=== PATIENT | female | born 1955 | race Caucasian/White ===

== ENCOUNTER → 2016-03-19 | Outpatient (CLI) | payer OTHER ==
[~2016-03-19] MED LIST: /ADVA50050 INH; /IPRAINH; ACET65TA; ACET65TA OR; ADV250INH INH; ADV500INH INH; ADVAIR; ALBU17IN INH; ALEN10TA PO; ALEV220T26 PO; AMLO5TAB2 PO; AZIT250T3 PO; BREO1INH INH; BREO1INH3 INH; CLON-412 PO; COMBVENT INH; DOLO10TA PO; FLEXERIL PO; FLUC100T PO; FLUC10TA PO; FOSA70TA PO; HYDR25TAB PO; IBUP600T PO; INCR1INH INH; LEVA500T; LEVA500T PO; LEVA750T PO; METH10SO PO; METH40TA OR; METH5SOL PO; METH5TAB2; MIRALEX OR; MUCI600T34 PO; NICO14DI20 TD; NICO21DI4; NICO7DIS4 TD; OMEP20CA3 PO; OMEP40CA2 PO; PRED10PA2 PO; PRED10TA PO; PRED10TA2; ROBITUSSIN; SENN8.6T5 OR; SOMA250T OR; SPIR1CAP INH; TIOT18INH INH; TRAM50TA2 OR; VITA-130 PO; VITA500046 PO; XOPEAER INH
--- NOTE | 2016-03-19 22:22 | ECGEPIP ---
Stationary ECG Study [facility] Test Date: 2016-03-19 Pat Name: RAN TATE Department: Room: - Gender: F Oim Architect: ANNA : 1955 Requested By: Sofy Keys Order Number: [id number] Reading MD: Theodore Charles Measurements Intervals [place] Rate: 110 P: 85 ME: 115 QRS: 77 QRSD: 86 T: 74 QT: 345 QTc: 468 Interpretive Statements Sinus tachycardia Short ME interval Nonspecific ST-T wave abnormalities No significant change when compared to prior tracing of 01/17/2016 Electronically Signed On 03-19-2016 22:21:41 EST by Theodore Charles
== END ==
LOC: M EKG 14:11
PROVIDERS: ATTEND Nurse Practitioner
DX: F11.20 Opioid dependence, uncomplicated (principal)

== ENCOUNTER → 2016-03-21 | Outpatient (CLI) | payer MEDICAID | LOC: M OUTALCOH 10:26 | PROVIDERS: ATTEND Psychiatry & Neurology Psychiatry | DX: Z13.9 Encounter for screening, unspecified (principal); F11.20 Opioid dependence, uncomplicated ==

== ENCOUNTER 2016-04-01 09:42 | Outpatient (RCR) | payer MEDICAID | END 2016-04-02 | LOC: M OUTALCOH 09:42 | PROVIDERS: ATTEND Psychiatry & Neurology Psychiatry | DX: F11.20 Opioid dependence, uncomplicated (principal); F17.200 Nicotine dependence, unspecified, uncomplicated ==

== ENCOUNTER 2016-04-29 08:45 | Outpatient (RCR) | payer MEDICAID | END 2016-04-30 | LOC: M OUTALCOH 08:45 | PROVIDERS: ATTEND Psychiatry & Neurology Psychiatry | DX: F11.20 Opioid dependence, uncomplicated (principal); F17.200 Nicotine dependence, unspecified, uncomplicated ==

== ENCOUNTER → 2016-05-31 | Outpatient (RCR) | payer MEDICAID | LOC: M OUTALCOH 05-01 15:01 | PROVIDERS: ATTEND Psychiatry & Neurology Psychiatry | DX: F11.20 Opioid dependence, uncomplicated (principal); F17.200 Nicotine dependence, unspecified, uncomplicated ==

== ENCOUNTER 2016-06-28 15:00 | Outpatient (RCR) | payer MEDICAID | END 2016-06-30 | LOC: M OUTALCOH 15:00 | PROVIDERS: ATTEND Psychiatry & Neurology Psychiatry | DX: F11.20 Opioid dependence, uncomplicated (principal); F17.200 Nicotine dependence, unspecified, uncomplicated ==

== ENCOUNTER 2016-07-07 15:18 | Inpatient (IN) | payer MEDICAID, OTHER ==
[~2016-07-07] VITALS: Ht 149.9 cm; Wt 41.2 kg
[2016-07-07 16:03] LABS: ABG BASE EXCESS 2.1 (-2.0-2.0); ABG HCO3 33.6 MEQ/L (22.0-26.0); ABG PARTIAL PRESSURE O2 83.4 mmHg (75.0-100.0); ABG STANDARD HCO3 26.3 MEQ/L (22.0-26.0); ABG TOTAL CO2 36.4 MEQ/L (23.0-31.0)
[2016-07-07 16:06] LABS: ABG PARTIAL PRESSURE CO2 91.1 mmHg (35.0-45.0); ABG pH (ARTERIAL) 7.185 UNITS (7.350-7.450)
[2016-07-07 16:09] LABS: BASO # 0.1 K/mm3 (0.0-0.2); EOS % 0.1 % (0.0-3.0); LARGE UNSTAINED CELL # 0.1 K/mm3 (0.0-0.4); LARGE UNSTAINED CELL % 0.8 % (0.0-4.0); LYMPH # 0.9 K/mm3 (1.5-4.5); LYMPH % 8.9 % (24.0-44.0); MEAN CORPUSCULAR HEMOGLOBIN 28.8 pg (27.0-33.0); MEAN CORPUSCULAR HGB CONC 30.2 g/dl (32.0-36.5); MEAN CORPUSCULAR VOLUME 95.4 fl (80.0-96.0); MONO # 0.3 K/mm3 (0.0-0.8); MONO % 3.8 % (0.0-5.0); NEUTROPHILS # 7.6 K/mm3 (1.8-7.7); NEUTROPHILS % 85.3 % (36.0-66.0); PLATELET COUNT, AUTOMATED 250 k/mm3 (150-450); RED CELL DISTRIBUTION WIDTH 13.1 % (11.5-14.5)
[2016-07-07] MEDS ORDERED: methylPREDNISolone INJ 125 MG/2 ML VIAL (J2930) IV ONE (16:15)
[2016-07-07] MEDS ORDERED: NS 1,000 ML IV SCH ×2 (16:15→18:00)
[2016-07-07] MEDS ORDERED: IPRATROPIUM 0.5MG/ALBUTEROL 2.5MG INH SOL UD 3ML (DUONEB)(J7620) NEB ONE (16:15)
[2016-07-07 16:23] LABS: ALBUMIN 3.6 GM/DL (3.2-5.2); ALBUMIN/GLOBULIN RATIO 1.13 (1.00-1.93); ALKALINE PHOSPHATASE 66 U/L (45-117); ALT/SGPT 19 U/L (12-78); ANION GAP 5 MEQ/L (8-16); AST/SGOT 27 U/L (15-37); BILIRUBIN,DIRECT < 0.1 MG/DL (0.0-0.2); BILIRUBIN,TOTAL 0.2 MG/DL (0.2-1.0); BLOOD UREA NITROGEN 16 MG/DL (7-18); CALCIUM LEVEL 7.7 MG/DL (8.8-10.2); CARBON DIOXIDE LEVEL 33 MEQ/L (21-32); CHLORIDE LEVEL 98 MEQ/L (98-107); CREATININE FOR GFR 0.58 MG/DL (0.55-1.02); GLOMERULAR FILTRATION RATE > 60.0 (>45); GLUCOSE, FASTING 125 MG/DL (80-110); SODIUM LEVEL 136 MEQ/L (136-145); TOTAL PROTEIN 6.8 GM/DL (6.4-8.2)
[2016-07-07 16:25] LABS: INR 1.02
[2016-07-07] MEDS ORDERED: LevoFLOXacin IV 750 MG in APPROPRIATE DILUENT 1 EA IV ONE (16:45)
[2016-07-07 17:05] LABS: T UPTAKE 34 % (30-39); THYROXINE (T4) 9.8 UG/DL (4.5-12.0)
[2016-07-07] MEDS ORDERED: ALBUTEROL SULFATE 2.5 MG/0.5 ML INH NEB SOLN INH PRN (17:30)
[2016-07-07 17:36] LABS: ABG HCO3 34.3 MEQ/L (22.0-26.0); ABG PARTIAL PRESSURE O2 89.9 mmHg (75.0-100.0); ABG STANDARD HCO3 28.9 MEQ/L (22.0-26.0); ABG TOTAL CO2 36.6 MEQ/L (23.0-31.0); ABG pH (ARTERIAL) 7.281 UNITS (7.350-7.450)
[2016-07-07 17:38] LABS: ABG PARTIAL PRESSURE CO2 74.6 mmHg (35.0-45.0)
--- NOTE | 2016-07-07 17:38 | HPEPDOC ---
Medical History and Physical Date of Admission 07/07/16 History and Physical PRIMARY CARE PROVIDER: Dr. [facility] resident clinic. ATTENDING: AURE KELLEY MD CHIEF COMPLAINT: SOB HISTORY OF PRESENT ILLNESS: Is a 61-year-old female past history of COPD on 2 L home O2, opiate dependence previously on a methadone program, GERD, OA who presents increasing SOB and hypoxia. states patient has been complaining of shortness of breath and generalized malaise over the past week. Patient states over the past few days she's developed thicker mucus as well as increasing shortness of breath. Today, the patient's pulse ox was noted to be 62 on 2 L nasal cannula. Patient denies any fevers however had a fever 100.8 in the ED. Patient was very lethargic in the ED and was placed on BiPAP. ABG with respiratory acidosis. At present patient is alert oriented 3. Was able to give a full history. Patient denies any chest pain/shortness of breath/palpitations. Patient denies nausea/vomiting/abdominal pain. Patient states she's in a methadone program in [place] and closer daily for her methadone. States she takes 80 mg daily. PAST MEDICAL HISTORY: As per HPI PAST SURGICAL HISTORY: Hysterectomy CURRENT MEDICATIONS: See below ALLERGIES: See below SOCIAL HISTORY: Smokes a half a pack a day for over 30 years, drinks alcohol occasionally on the weekends, uses methadone however no cocaine, heroin, marijuana. FAMILY HISTORY: Father and sister of lung cancer REVIEW OF SYSTEMS: HEENT: Denies sore throat/headache CARDIOVASCULAR: Denies chest pain/palpitations RESPIRATORY: + shortness of breath/cough. GASTROINTESTINAL: denies nausea/vomiting GENITOURINARY: Denies dysuria/urinary urgency. MUSCULOSKELETAL: Denies myalgias/arthralgias NEUROLOGICAL: Denies any focal weakness Rest of ROS negative. PHYSICAL EXAMINATION: VITAL SIGNS: See Below. General: No acute distress, laying comfortably in bed. HEENT: Moist mucous membranes. Hoarse. Patent airway. Neck: No JVD or lymphadenopathy Cardiac: Tachycardic, No murmurs Pulm: Expiratory wheezing b/l, diminished breath sounds at the bases. No rhonchi. On Bipap Abd: NT/ND + BS Ext: No edema or cyanosis. Distal pulses intact. Neuro: Strength 5/5 BUE and BLE. CN 2-12 intact. LABORATORY DATA: See below. IMAGING: CXR 07/07/16 with possible basilar PNA. ASSESSMENT/PLAN: 1. Acute hypercapnic respiratory failure requiring BIPAP likely 2/2 PNA. . Patient was noted to be lethargic in the ED; mentation improve don BIPAP. Chest x-ray (see above). ABG with 7.185/91/83/34. Will repeat in 2h. Dual nebs and solumedrol. On 2 L of home O2. Also on methadone - ? if contributing. 2. Decreased PO intake - 2/2 #1, started on IVF 3. Opiate addiction - On methadone program. Will check UDS. 4. GERD- continue PPI DVT prophylaxis- enoxaparin Pt will be followed by Dr. Zaragoza starting 07/08/16 at 7am. Vital Signs Vital Signs Date Time Temp Pulse Resp B/P (MAP) Pulse Ox O2 Delivery O2 Flow Rate FiO2 07/07/16 16:35 45 07/07/16 16:34 Venturi Mask 10.0 07/07/16 16:22 07/07/16 15:19 82 68 Laboratory Data Labs 24H Laboratory Tests 2 07/07/16 15:47: White Blood Count 9.0, Red Blood Count 4.88, Hemoglobin 14.1, Hematocrit 46.5, Mean Corpuscular Volume 95.4, Mean Corpuscular Hemoglobin 28.8, Mean Corpuscular Hemoglobin Concent 30.2L, Red Cell Distribution Width 13.1, Platelet Count 250, Neutrophils (%) (Auto) 85.3H, Lymphocytes (%) (Auto) 8.9L, Monocytes (%) (Auto) 3.8, Eosinophils (%) (Auto) 0.1, Basophils (%) (Auto) 1.0, Neutrophils # (Auto) 7.6, Lymphocytes # (Auto) 0.9L, Monocytes # (Auto) 0.3, Eosinophils # (Auto) 0.0, Basophils # (Auto) 0.1, Large Unclassified Cells % 0.8 , Large Unclassified Cells # 0.1, Anion Gap 5L, Glomerular Filtration Rate > 60.0, Lactic Acid Level 0.9, Calcium Level 7.7L, Aspartate Amino Transf (AST/ SGOT) 27, Alanine Aminotransferase (ALT/SGPT) 19, Alkaline Phosphatase 66, Total Bilirubin 0.2, Direct Bilirubin < 0.1, Total Creatine Kinase 86, Creatine Kinase MB 1.1, Creatine Kinase MB Relative Index 1.27, Troponin I < 0.02, C- Reactive Protein, Quantitative 8.65H, B-Type Natriuretic Peptide 62.2, Total Protein 6.8, Albumin 3.6, Albumin/Globulin Ratio 1.13, Thyroid Stimulating Hormone (TSH) 0.180L, Free Thyroxine Index 3.3, Thyroxine (T4) 9.8, Triiodothyronine (T3) Uptake 34 07/07/16 15:54: Blood Gas Bicarbonate Standard 26.3H, Arterial Blood pH 7.185*L, Arterial Blood Partial Pressure CO2 91.1*H, Arterial Blood Partial Pressure O2 83.4, Arterial Blood Total CO2 36.4H, Arterial Blood HCO3 33.6H, Arterial Blood Base Excess 2.1H, Arterial Blood Oxygen Saturation 94.5L 07/07/16 15:57: Prothrombin Time 13.5, Prothromb Time International Ratio 1.02 CBC/BMP Laboratory Tests 07/07/16 15:47 Red Blood Count 4.88, Mean Corpuscular Volume 95.4, Mean Corpuscular Hemoglobin 28.8, Mean Corpuscular Hemoglobin Concent 30.2 L, Red Cell Distribution Width 13.1, Neutrophils (%) (Auto) 85.3 H, Lymphocytes (%) (Auto) 8.9 L, Monocytes (% ) (Auto) 3.8, Eosinophils (%) (Auto) 0.1, Basophils (%) (Auto) 1.0, Neutrophils # (Auto) 7.6, Lymphocytes # (Auto) 0.9 L, Monocytes # (Auto) 0.3, Eosinophils # (Auto) 0.0, Basophils # (Auto) 0.1 Microbiology Microbiology 07/07/16 Blood Culture, Received Pending 07/07/16 Blood Culture, Received Pending 07/07/16 Respiratory Virus Panel (PCR) ([facility]), Received Pending Home Medications Scheduled (Incruse Ellipta) 62.5 Mcg/Inh Inh, 1 PUFF INH DAILY Ascorbic Acid (Vitamin C) 500 Mg Tab, 500 MG PO DAILY Clonidine Hydrochloride (Clonidine HCl) 0.1 Mg Tab, 0.1 MG PO Q6H hold for systolic blood pressure<150 Fluticasone/Vilanterol (Breo Ellipta 200-25 Mcg/INH) 1 Inh Inh, 1 INH INH DAILY Methadone HCl (Dolophine) 10 Mg Tab, 10 MG PO BID Nicotine (Nicoderm Cq) 7 Mg/24 Hr Dis, 7 MG TD DAILY Scheduled PRN Albuterol Sulfate (Ventolin Hfa) 200 Puff/8 Gm Aers, 2 PUFF INH Q4H PRN for SOB/ WHEEZING Hydrochlorothiazide (Hydrochlorothiazide) 25 Mg Tab, 25 MG PO DAILY PRN for fluid retention Allergies Coded Allergies: Penicillins (Verified Allergy, Severe, THROAT CLOSES, 07/07/16) Penicillins Cross Reactors (Verified Allergy, Severe, THROAT CLOSES, ) AURE KELLEY MD July 07, 2016 17:38
[2016-07-07] MEDS ORDERED: FLUC100T PO (17:46)
[2016-07-07] MEDS ORDERED: PRED10TA PO (17:46)
[2016-07-07] MEDS ORDERED: METH40TA PO (17:48)
[2016-07-07] MEDS ORDERED: IPRASOL4 INH (17:48)
--- NOTE | 2016-07-07 17:54 | REP ---
CHEST, TWO VIEWS: REASON: Fever and cough. COMPARISON: 01/17/2016 The lung albarado are markedly hyper-expanded. The heart is not enlarged. There are chronic basilar changes stable from the prior exam. On the lateral view only there is a suggested opacity in the posterior sulcus, possible representing lower lobe pneumonia and possibly left retrocardiac in origin. There is chronic CP angle blunting. The heart is not enlarged. There are multiple vertebral body compression fractures of grade 1/2, particularly T8 and T9. IMPRESSION: Marked chronic changes with possible basilar pneumonia. Signed by Fly Weller DO 07/08/2016 09:56 A
[2016-07-07] MEDS ORDERED: CALCIUM GLUCONATE 1,000 MG in D5W MINI-BAG PLUS 100 ML IV ONE (19:00)
[2016-07-07] MEDS: IPRATROPIUM 0.5MG/ALBUTEROL 2.5MG INH SOL UD 3ML (DUONEB)(J7620) NEB SCH (19:37)
[2016-07-07 20:42] VITALS: BP 124/70
[2016-07-07 21:26] LABS: ABG BASE EXCESS 4.6 (-2.0-2.0); ABG HCO3 33.4 MEQ/L (22.0-26.0); ABG PARTIAL PRESSURE O2 75.8 mmHg (75.0-100.0); ABG STANDARD HCO3 28.5 MEQ/L (22.0-26.0); ABG TOTAL CO2 35.6 MEQ/L (23.0-31.0)
[2016-07-07 21:29] LABS: ABG PARTIAL PRESSURE CO2 71.1 mmHg (35.0-45.0)
[2016-07-07 22:00] VITALS: BP 103/63
[2016-07-07] MEDS: methylPREDNISolone INJ 125 MG/2 ML VIAL (J2930) IV SCH (23:40)
[2016-07-08] VITALS (10 sets, daily range): BP systolic 95–157; BP diastolic 61–91; O2SAT 91
[2016-07-08 00:46] LABS: ABG BASE EXCESS 2.1 (-2.0-2.0); ABG HCO3 29.4 MEQ/L (22.0-26.0); ABG PARTIAL PRESSURE CO2 58.2 mmHg (35.0-45.0); ABG PARTIAL PRESSURE O2 64.6 mmHg (75.0-100.0); ABG STANDARD HCO3 26.2 MEQ/L (22.0-26.0); ABG TOTAL CO2 31.2 MEQ/L (23.0-31.0); ABG pH (ARTERIAL) 7.322 UNITS (7.350-7.450)
[2016-07-08] MEDS: IPRATROPIUM 0.5MG/ALBUTEROL 2.5MG INH SOL UD 3ML (DUONEB)(J7620) NEB SCH ×7 (00:52→23:18)
[2016-07-08 04:43] LABS: MEAN CORPUSCULAR HEMOGLOBIN 29.9 pg (27.0-33.0); MEAN CORPUSCULAR HGB CONC 30.7 g/dl (32.0-36.5); MEAN CORPUSCULAR VOLUME 97.3 fl (80.0-96.0); RED CELL DISTRIBUTION WIDTH 13.1 % (11.5-14.5); WHITE BLOOD COUNT 6.8 K/mm3 (4.0-10.0)
[2016-07-08 04:55] LABS: ANION GAP 4 MEQ/L (8-16); BLOOD UREA NITROGEN 19 MG/DL (7-18); CALCIUM LEVEL 7.9 MG/DL (8.8-10.2); CARBON DIOXIDE LEVEL 34 MEQ/L (21-32); CHLORIDE LEVEL 100 MEQ/L (98-107); CREATININE FOR GFR 0.45 MG/DL (0.55-1.02); GLOMERULAR FILTRATION RATE > 60.0 (>45); GLUCOSE, FASTING 105 MG/DL (80-110); MAGNESIUM LEVEL 1.7 MG/DL (1.8-2.4); POTASSIUM SERUM 4.1 MEQ/L (3.5-5.1); SODIUM LEVEL 138 MEQ/L (136-145)
[2016-07-08] MEDS: methylPREDNISolone INJ 125 MG/2 ML VIAL (J2930) IV SCH ×4 (05:33→23:37)
--- NOTE | 2016-07-08 06:37 | ECGEPIP ---
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
[2016-07-08] MEDS ORDERED: CALCIUM GLUCONATE 1,000 MG in D5W MINI-BAG PLUS 100 ML IV ONE (07:30)
--- NOTE | 2016-07-08 08:48 | IPNPDOC ---
Date Seen The patient was seen on 07/08/16. Progress Note SUBJECTIVE: Ms. Callahan is a 61-year-old female evaluated bedside this morning. She sitting upright. She denies shortness of breath and states that she is getting better. She would like to get up to use the facilities. Likely the patient will be transferred to medical surgical unit as clinically she appears to be improving. Magnesium and calcium were supplemented this morning secondary to mild deficiencies. Patient states that she was on Diflucan for oral thrush and that has been restarted. ABG appears improved. Patient remains afebrile. Patient states that she has a CPAP machine at home, but does not wear it consistently. Recommended that machine be brought in and used while hospitalized. Patient states that she is on methadone and has been for the last 7 years secondary to opioid abuse. Most recent relapse was in December for which she received rehabilitation in January. She receies methadone from [place]. Travels to [place] every day. Continue with methadone while hospitalized. Patient states that she smokes intermittently and has on and off for years. States that she will not resume tobacco use upon discharge. OBJECTIVE PHYSICAL EXAMINATION: VITAL SIGNS: Please see below. GENERAL: Petite female resting comfortably in hospital bed upon evaluation, no apparent distress HEENT: Atraumatic, normocephalic, PERRL, EOMI, oral candidiasis, wears spectacles, nasal cannula in place CARDIOVASCULAR: Regular rate and rhythm, normal S1 and S2, no murmur, rub, click appreciated RESPIRATORY: Clear to auscultation bilaterally, adequate inspiratory and expiratory airway excursion, no wheeze, rhonchi, crackles ABDOMINAL: Flat, soft, nontender, bowel sounds appreciated EXTREMITIES: Moving all 4 extremities appropriately, peripheral pulses appreciated in upper and lower extremities bilaterally, equal, symmetrical, +2/4 NEUROLOGICAL: Cranial nerves II through XII grossly intact PSYCHOLOGICAL: Mood and affect appear appropriate LABORATORY DATA: Please see below. MICROBIOLOGY: Please see below. IMAGING: Chest x-ray DVT prophylaxis ordered?: Lovenox 40 mg subcutaneous daily ASSESSMENT AND PLAN: Ms. Callahan is a 61-year-old female who presents with acute on chronic hypoxic and hypercarbic respiratory failure secondary to COPD exacerbation. PROBLEMS: 1. Acute on chronic hypoxic hypercarbic respiratory failure: Likely secondary to COPD exacerbation secondary to sputum culture positive for rhinovirus. Patient remains afebrile with no white count. ABG this morning reports pH 7.322 , PCO2 58.2, PO2 64.6, HCO3 31.2. ABG has improved. Antibiotic has been discontinued. Patient remains on DuoNeb, albuterol, and Solu-Medrol. Bedside oxygenation 92% on nasal cannula. Awaiting report from chest x-ray this morning. Patient may use home CPAP machine. Will confer with respiratory therapy to adjust patient's settings. 2. Oral candidiasis: Patient was diagnosed with oral candidiasis for hospitalization. Have restarted patient's fluconazole 100 mg daily for 4 remaining days. 3. Hypomagnesemia: Magnesium level this morning was 1.7. Have ordered magnesium supplementation. 4. Hypercalcemia: Patient's calcium levels 107.9. Have provided supplementation. 5. History of opioid abuse: Patient is on methadone daily. States that she is prior history of opioid abuse and has been on methadone for 7 years. Receives methadone from clinic in [place]. States she travels to [place] daily. Most recent relapse was in December. Received rehabilitation January. No relapses since then. We'll need to consider methadone dose before initiating. DISPOSITION: Clinically patient appears to be improving. Afebrile. No WBC. Restarted fluconazole for patient's oral candidiasis. Supplementation for low magnesium and calcium. ABG appears improved. Patient can transferred to medical surgical unit. VS, I&O, 24H, Fishbone Vital Signs/I&O Vital Signs Date Time Temp Pulse Resp B/P (MAP) Pulse Ox O2 Delivery O2 Flow Rate FiO2 07/08/16 06:00 78 16 123/72 (89) 90 NIPPV (BIPAP/CPAP) 28 07/08/16 04:00 97.8 07/07/16 16:34 10.0 I&O- Last 24 Hours up to 6 AM 07/08/16 05:59 Intake Total 350 ml Output Total 300 ml Balance 50 ml Laboratory Data 24H LABS Laboratory Tests 2 07/07/16 15:47: White Blood Count 9.0, Red Blood Count 4.88, Hemoglobin 14.1, Hematocrit 46.5, Mean Corpuscular Volume 95.4, Mean Corpuscular Hemoglobin 28.8, Mean Corpuscular Hemoglobin Concent 30.2L, Red Cell Distribution Width 13.1, Platelet Count 250, Neutrophils (%) (Auto) 85.3H, Lymphocytes (%) (Auto) 8.9L, Monocytes (%) (Auto) 3.8, Eosinophils (%) (Auto) 0.1, Basophils (%) (Auto) 1.0, Neutrophils # (Auto) 7.6, Lymphocytes # (Auto) 0.9L, Monocytes # (Auto) 0.3, Eosinophils # (Auto) 0.0, Basophils # (Auto) 0.1, Large Unclassified Cells % 0.8 , Large Unclassified Cells # 0.1, Anion Gap 5L, Glomerular Filtration Rate > 60.0, Lactic Acid Level 0.9, Calcium Level 7.7L, Aspartate Amino Transf (AST/ SGOT) 27, Alanine Aminotransferase (ALT/SGPT) 19, Alkaline Phosphatase 66, Total Bilirubin 0.2, Direct Bilirubin < 0.1, Total Creatine Kinase 86, Creatine Kinase MB 1.1, Creatine Kinase MB Relative Index 1.27, Troponin I < 0.02, C- Reactive Protein, Quantitative 8.65H, B-Type Natriuretic Peptide 62.2, Total Protein 6.8, Albumin 3.6, Albumin/Globulin Ratio 1.13, Thyroid Stimulating Hormone (TSH) 0.180L, Free Thyroxine Index 3.3, Thyroxine (T4) 9.8, Triiodothyronine (T3) Uptake 34 07/07/16 15:54: Blood Gas Bicarbonate Standard 26.3H, Arterial Blood pH 7.185*L, Arterial Blood Partial Pressure CO2 91.1*H, Arterial Blood Partial Pressure O2 83.4, Arterial Blood Total CO2 36.4H, Arterial Blood HCO3 33.6H, Arterial Blood Base Excess 2.1H, Arterial Blood Oxygen Saturation 94.5L 07/07/16 15:57: Prothrombin Time 13.5, Prothromb Time International Ratio 1.02 07/07/16 17:20: Blood Gas Bicarbonate Standard 28.9H, Arterial Blood pH 7.281L, Arterial Blood Partial Pressure CO2 74.6*H, Arterial Blood Partial Pressure O2 89.9, Arterial Blood Total CO2 36.6H, Arterial Blood HCO3 34.3H, Arterial Blood Base Excess 5.0H, Arterial Blood Oxygen Saturation 96.9 07/07/16 21:16: Blood Gas Bicarbonate Standard 28.5H, Arterial Blood pH 7.290L, Arterial Blood Partial Pressure CO2 71.1*H, Arterial Blood Partial Pressure O2 75.8, Arterial Blood Total CO2 35.6H, Arterial Blood HCO3 33.4H, Arterial Blood Base Excess 4.6H, Arterial Blood Oxygen Saturation 95.1, Arterial Blood Gas Puncture Site RT RADIAL 07/07/16 22:14: Total Creatine Kinase 55, Creatine Kinase MB 1.2, Creatine Kinase MB Relative Index 2.18, Troponin I < 0.02 07/08/16 00:37: Blood Gas Bicarbonate Standard 26.2H, Arterial Blood pH 7.322L, Arterial Blood Partial Pressure CO2 58.2H, Arterial Blood Partial Pressure O2 64.6L, Arterial Blood Total CO2 31.2H, Arterial Blood HCO3 29.4H, Arterial Blood Base Excess 2.1H, Arterial Blood Oxygen Saturation 92.4L, Arterial Blood Gas Puncture Site RT RADIAL 07/08/16 04:12: Anion Gap 4L, Glomerular Filtration Rate > 60.0, Blood Urea Nitrogen 19H, Creatinine 0.45L, Sodium Level 138, Potassium Level 4.1, Chloride Level 100, Carbon Dioxide Level 34H, Calcium Level 7.9L, Magnesium Level 1.7L, C-Reactive Protein, Quantitative 10.70H CBC/BMP Laboratory Tests 07/07/16 15:47 Red Blood Count 4.88, Mean Corpuscular Volume 95.4, Mean Corpuscular Hemoglobin 28.8, Mean Corpuscular Hemoglobin Concent 30.2 L, Red Cell Distribution Width 13.1, Neutrophils (%) (Auto) 85.3 H, Lymphocytes (%) (Auto) 8.9 L, Monocytes (% ) (Auto) 3.8, Eosinophils (%) (Auto) 0.1, Basophils (%) (Auto) 1.0, Neutrophils # (Auto) 7.6, Lymphocytes # (Auto) 0.9 L, Monocytes # (Auto) 0.3, Eosinophils # (Auto) 0.0, Basophils # (Auto) 0.1 07/08/16 04:12 Red Blood Count 4.24, Mean Corpuscular Volume 97.3 H, Mean Corpuscular Hemoglobin 29.9, Mean Corpuscular Hemoglobin Concent 30.7 L, Red Cell Distribution Width 13.1, Calcium Level 7.9 L Microbiology Microbiology 07/07/16 Blood Culture, Received Pending 07/07/16 Blood Culture, Received Pending 5/7/17 Respiratory Virus Panel (PCR) ([facility]) - Final, Complete Human Rhinovirus/Enterovirus ROSENDO MCCALL-I July 08, 2016 08:48
[2016-07-08] MEDS ORDERED: FLUCONAZOLE 100 MG TAB PO SCH (09:00)
[2016-07-08] MEDS: NICOTINE 14 MG/24 HR TRANSDERMAL TD SCH (09:00)
[2016-07-08] MEDS ORDERED: LevoFLOXacin IV 500 MG in APPROPRIATE DILUENT 1 EA IV SCH (09:00)
[2016-07-08] MEDS: ENOXAPARIN 40 MG/0.4 ML SYRINGE (J1650) SC SCH (09:05)
[2016-07-08] MEDS: MAG SULF 1GM/100ML (MAG RUN) 1 GM in APPROPRIATE DILUENT 1 EA IV SCH ×2 (09:06→10:12)
--- NOTE | 2016-07-08 09:23 | REP ---
PORTABLE CHEST: AP portable view of the chest is performed and compared with prior study of 07/07/2016. There is mild increase in bibasilar streaky atelectasis/infiltrate. Cardiomediastinal silhouette is unchanged. There is calcification of the thoracic aorta. IMPRESSION: Slight increase in streaky bibasilar atelectasis/infiltrate. Signed by Jamari Pabon MD 07/09/2016 04:00 P
[2016-07-08] MEDS: METHADONE 10 MG TAB (S0109) PO SCH (11:21)
[2016-07-08] MEDS: NYSTATIN 500,000 U/5 ML SUSP UDC SS SCH ×3 (11:34→23:37)
[2016-07-08] MEDS ORDERED: ACETAMINOPHEN TAB 650MG DOSE (2X325MG) PO ONE (21:00)
[2016-07-09] MEDS: IPRATROPIUM 0.5MG/ALBUTEROL 2.5MG INH SOL UD 3ML (DUONEB)(J7620) NEB SCH ×5 (04:00→20:24)
[2016-07-09 06:00] VITALS: BP 133/87
[2016-07-09] MEDS ORDERED: ACETAMINOPHEN TAB 650MG DOSE (2X325MG) PO ONE (06:00)
[2016-07-09] MEDS: methylPREDNISolone INJ 125 MG/2 ML VIAL (J2930) IV SCH ×2 (06:07→10:17)
[2016-07-09] MEDS: NYSTATIN 500,000 U/5 ML SUSP UDC SS SCH ×3 (06:07→18:42)
[2016-07-09 06:53] LABS: MEAN CORPUSCULAR HEMOGLOBIN 29.6 pg (27.0-33.0); MEAN CORPUSCULAR HGB CONC 30.9 g/dl (32.0-36.5); MEAN CORPUSCULAR VOLUME 95.9 fl (80.0-96.0); WHITE BLOOD COUNT 15.1 K/mm3 (4.0-10.0)
[2016-07-09 06:59] LABS: ANION GAP 4 MEQ/L (8-16); BLOOD UREA NITROGEN 12 MG/DL (7-18); CALCIUM LEVEL 7.9 MG/DL (8.8-10.2); CARBON DIOXIDE LEVEL 36 MEQ/L (21-32); CHLORIDE LEVEL 97 MEQ/L (98-107); CREATININE FOR GFR 0.43 MG/DL (0.55-1.02); GLOMERULAR FILTRATION RATE > 60.0 (>45); GLUCOSE, FASTING 127 MG/DL (80-110); MAGNESIUM LEVEL 2.1 MG/DL (1.8-2.4); POTASSIUM SERUM 4.3 MEQ/L (3.5-5.1); SODIUM LEVEL 137 MEQ/L (136-145)
[2016-07-09] MEDS: ENOXAPARIN 40 MG/0.4 ML SYRINGE (J1650) SC SCH (09:08)
[2016-07-09] MEDS: NICOTINE 14 MG/24 HR TRANSDERMAL TD SCH (09:08)
[2016-07-09] MEDS: METHADONE 10 MG TAB (S0109) PO SCH (09:09)
[2016-07-09] MEDS ORDERED: ONDANSETRON 4MG/2ML VIAL (J2405) IV PRN (10:45)
[2016-07-09] MEDS: OMEPRAZOLE 20 MG CAP PO SCH ×2 (11:00→19:46)
[2016-07-09 14:00] VITALS: BP 165/80
--- NOTE | 2016-07-09 15:01 | IPNPDOC ---
Date Seen The patient was seen on 07/09/16. Progress Note SUBJECTIVE: Ms. Callahan this 61-year-old female evaluated bedside this morning. She is receiving a breathing treatment during evaluation. Reports her breathing has improved. OBJECTIVE PHYSICAL EXAMINATION: VITAL SIGNS: Please see below. GENERAL: Petite female evaluated bedside this morning, well-nourished , well-developed, in no apparent distress HEENT: Atraumatic, normocephalic, PERRL, EOMI, oral mucosa appears pink and moist, nebulizer in place during evaluation CARDIOVASCULAR: Regular rate and rhythm, normal S1 and S2, no murmur, rub, click appreciated RESPIRATORY: Clear to auscultation bilaterally, adequate inspiratory and expiratory airway excursion, no appreciable wheeze, rhonchi, crackles ABDOMINAL: Soft, flat, nontender, nondistended, bowel sounds appreciated EXTREMITIES: Without edema, moving all 4 extremities appropriately, upper and lower extremity pulses appreciated bilaterally, equal, symmetrical, +2/4 NEUROLOGICAL: Cranial nerves II through XII appear grossly intact PSYCHOLOGICAL: Mood and affect appear appropriate LABORATORY DATA: Please see below. MICROBIOLOGY: Please see below. DVT prophylaxis ordered?: Lovenox 40 mg subcutaneous daily. ASSESSMENT AND PLAN: Ms. Callahan is a 61-year-old female who presents with acute on chronic hypoxic and hypercarbic respiratory failure secondary to COPD exacerbation. PROBLEMS: 1. Acute on chronic hypoxic hypercarbic respiratory failure: Likely secondary to COPD exacerbation . Remains afebrile. Solu-Medrol adjusted to 40 mg every 8 hours. Continue with DuoNeb and albuterol. 2. Leukocytosis: Likely secondary to steroid. Remains afebrile. Adjusted steroid to 40 mg every 8 hours. 3. Hypercalcemia: Corrected calcium is 8.2 to. Likely secondary to pH disturbance secondary to COPD. Continue to monitor. 4. Oral candidiasis: Fluconazole interacts with methadone. Change patient to nystatin swish and swallow. 5. Hypomagnesemia: Resolved 6. History of opioid abuse: Continue with methadone. 7. Gastric esophageal reflux disease: Initiate omeprazole 40 mg twice a day. 8. Nausea: Patient complaining subjective nausea. Started Zofran. DISPOSITION: Currently admitted to medical surgical unit. Continue supplemental treatments. Monitor for clinical improvement. Possible discharge in the next 48- 72 hours. VS, I&O, 24H, Fishbone Vital Signs/I&O Vital Signs Date Time Temp Pulse Resp B/P (MAP) Pulse Ox O2 Delivery O2 Flow Rate FiO2 07/09/16 09:15 Nasal Cannula 2.0 07/09/16 09:09 18 07/09/16 06:00 97.8 87 133/87 (102) 95 07/08/16 06:00 28 I&O- Last 24 Hours up to 6 AM 07/09/16 06:00 Intake Total 1820 ml Output Total 1225 ml Balance 595 ml Laboratory Data 24H LABS Laboratory Tests 2 07/09/16 06:27: Anion Gap 4L, Glomerular Filtration Rate > 60.0, Blood Urea Nitrogen 12, Creatinine 0.43L, Sodium Level 137, Potassium Level 4.3, Chloride Level 97L, Carbon Dioxide Level 36H, Calcium Level 7.9L, Magnesium Level 2.1, C-Reactive Protein, Quantitative 4.33H CBC/BMP Laboratory Tests 07/09/16 06:27 Red Blood Count 4.14, Mean Corpuscular Volume 95.9, Mean Corpuscular Hemoglobin 29.6, Mean Corpuscular Hemoglobin Concent 30.9 L, Red Cell Distribution Width 13.0, Calcium Level 7.9 L Microbiology Microbiology 07/07/16 Blood Culture - Preliminary, Resulted No growth after 24 hours . All specim... 07/07/16 Blood Culture - Preliminary, Resulted No growth after 24 hours . All specim... 07/07/16 Respiratory Virus Panel (PCR) ([facility]) - Final, Complete Human Rhinovirus/Enterovirus ROSENDO MCCALL July 09, 2016 15:01
[2016-07-09] MEDS: methylPREDNISolone INJ 40 MG/1 ML VIAL (J2920) IV SCH (18:43)
[2016-07-09] MEDS: guaiFENesin ER 600 MG TAB PO SCH (19:46)
[2016-07-09 22:00] VITALS: BP 152/85
[2016-07-09] MEDS: ACETAMINOPHEN TAB 650MG DOSE (2X325MG) PO PRN (22:16)
[2016-07-10] MEDS: IPRATROPIUM 0.5MG/ALBUTEROL 2.5MG INH SOL UD 3ML (DUONEB)(J7620) NEB SCH ×7 (01:05→23:45)
[2016-07-10] MEDS: NYSTATIN 500,000 U/5 ML SUSP UDC SS SCH ×4 (01:22→17:19)
[2016-07-10] MEDS: methylPREDNISolone INJ 40 MG/1 ML VIAL (J2920) IV SCH ×2 (01:22→09:05)
[2016-07-10 06:00] VITALS: BP 148/82
[2016-07-10 06:48] LABS: MEAN CORPUSCULAR HEMOGLOBIN 29.9 pg (27.0-33.0); MEAN CORPUSCULAR HGB CONC 31.7 g/dl (32.0-36.5); MEAN CORPUSCULAR VOLUME 94.3 fl (80.0-96.0)
[2016-07-10 07:03] LABS: ANION GAP 3 MEQ/L (8-16); BLOOD UREA NITROGEN 10 MG/DL (7-18); CALCIUM LEVEL 8.3 MG/DL (8.8-10.2); CARBON DIOXIDE LEVEL 38 MEQ/L (21-32); CHLORIDE LEVEL 96 MEQ/L (98-107); CREATININE FOR GFR 0.45 MG/DL (0.55-1.02); GLOMERULAR FILTRATION RATE > 60.0 (>45); GLUCOSE, FASTING 115 MG/DL (80-110); MAGNESIUM LEVEL 2.1 MG/DL (1.8-2.4); POTASSIUM SERUM 4.3 MEQ/L (3.5-5.1); SODIUM LEVEL 137 MEQ/L (136-145)
[2016-07-10] MEDS: hydroCHLOROthiazide 25 MG TAB PO SCH (08:10)
[2016-07-10] MEDS: guaiFENesin ER 600 MG TAB PO SCH ×2 (08:10→21:30)
[2016-07-10] MEDS: METHADONE 10 MG TAB (S0109) PO SCH (08:11)
[2016-07-10] MEDS: OMEPRAZOLE 20 MG CAP PO SCH ×2 (08:11→21:30)
[2016-07-10] MEDS: NICOTINE 14 MG/24 HR TRANSDERMAL TD SCH (08:12)
[2016-07-10] MEDS: ENOXAPARIN 40 MG/0.4 ML SYRINGE (J1650) SC SCH (08:12)
[2016-07-10] MEDS: ACETAMINOPHEN TAB 650MG DOSE (2X325MG) PO PRN ×3 (09:06→21:30)
--- NOTE | 2016-07-10 10:12 | IPNPDOC ---
Date Seen The patient was seen on 07/10/16. Progress Note SUBJECTIVE: Ms. Callahan is a 61-year-old female evaluated bedside this morning. She sitting on the edge of the bed with her legs dangling over the edge eating breakfast upon evaluation. She reports that her breathing has definitely improved and that she is feeling better overall. She states that she is going to ambulate around the [place] today. Patient has brought in her home CPAP which she has not worn consistently over the last 2 years. Patient would like to have CPAP settings evaluated. I verbally discussed with respiratory therapy and they are aware. OBJECTIVE PHYSICAL EXAMINATION: VITAL SIGNS: Please see below. GENERAL: Petite female sitting comfortably in the edge of the bed upon evaluation this morning, nasal cannula in place, no apparent distress HEENT: Atraumatic, normocephalic, PERRL, EOMI, oral mucosa appears pink and moist, nasal septum is midline, nasal cannula in place, nares patent CARDIOVASCULAR: Regular rate and rhythm, normal S1 and S2, no murmur, rub, click appreciated RESPIRATORY: Bilateral wheezes noted in the upper lung lobes, rhonchi appreciated in the lower lobes bilaterally ABDOMINAL: Flat, soft, nontender, nondistended, bowel sounds appreciated EXTREMITIES: Moving all 4 extremities appropriately, no edema, upper and lower extremity pulses appreciated bilaterally, equal, symmetrical, +2/4 NEUROLOGICAL: Cranial nerves II through XII are grossly intact PSYCHOLOGICAL: Mood and affect appear appropriate LABORATORY DATA: Please see below. MICROBIOLOGY: Please see below. DVT prophylaxis ordered?: Lovenox 40 mg subcutaneous daily. ASSESSMENT AND PLAN: Ms. Callahan is a 61-year-old female who presents with acute on chronic hypoxic and hypercarbic respiratory failure secondary to COPD exacerbation. PROBLEMS: 1. Acute on chronic hypoxic hypercarbic respiratory failure: Likely secondary to COPD exacerbation . Continues to remain afebrile. On Solu-Medrol 40 mg every 12 hours, DuoNeb, and albuterol. CRP is improved. 2. Tachycardia: Intermittent. Likely related to cough secondary to rhinovirus. Asymptomatic. Continue to monitor. 3. Leukocytosis: Likely secondary to steroid. Remains afebrile. Continue to monitor with daily CBC 4. Hypocalcemia: Corrected calcium is 8.6. Likely secondary to pH disturbance secondary to COPD. Continue to monitor. 5. Oral candidiasis: Nystatin swish and swallow. 6. History of opioid abuse: Continue with methadone. 7. Gastric esophageal reflux disease: Initiate omeprazole 40 mg twice a day. 8. Nausea: Zofran. DISPOSITION: Currently admitted to medical surgical unit. Continue to monitor clinical picture. Patient family services have recommended the patient can return home once clinically stable. Possible discharge in the next 48-72 hours. VS, I&O, 24H, Fishbone Vital Signs/I&O Vital Signs Date Time Temp Pulse Resp B/P (MAP) Pulse Ox O2 Delivery O2 Flow Rate FiO2 07/10/16 08:11 18 07/10/16 06:00 97.8 94 148/82 (104) 93 Nasal Cannula 2.0 07/08/16 06:00 28 I&O- Last 24 Hours up to 6 AM 07/10/16 06:00 Intake Total 1680 ml Output Total 1450 ml Balance 230 ml Laboratory Data 24H LABS Laboratory Tests 2 07/10/16 06:10: Anion Gap 3L, Glomerular Filtration Rate > 60.0, Blood Urea Nitrogen 10, Creatinine 0.45L, Sodium Level 137, Potassium Level 4.3, Chloride Level 96L, Carbon Dioxide Level 38H, Calcium Level 8.3L, Magnesium Level 2.1, C-Reactive Protein, Quantitative 2.04H CBC/BMP Laboratory Tests 07/10/16 06:10 Red Blood Count 4.03, Mean Corpuscular Volume 94.3, Mean Corpuscular Hemoglobin 29.9, Mean Corpuscular Hemoglobin Concent 31.7 L, Red Cell Distribution Width 13.0, Calcium Level 8.3 L Microbiology Microbiology 07/07/16 Blood Culture - Preliminary, Resulted No Growth after 48 hours. All Specime... 07/07/16 Blood Culture - Preliminary, Resulted No Growth after 48 hours. All Specime... 07/07/16 Respiratory Virus Panel (PCR) ([facility]) - Final, Complete Human Rhinovirus/Enterovirus ROSENDO MCCALL-Juanpablo July 10, 2016 10:12
[2016-07-10 14:00] VITALS: BP 150/98
[2016-07-10 22:00] VITALS: BP 142/85
[2016-07-10] MEDS ORDERED: methylPREDNISolone INJ 40 MG/1 ML VIAL (J2920) IV SCH (22:00)
[2016-07-11] MEDS: NYSTATIN 500,000 U/5 ML SUSP UDC SS SCH ×4 (00:03→17:23)
[2016-07-11] MEDS: IPRATROPIUM 0.5MG/ALBUTEROL 2.5MG INH SOL UD 3ML (DUONEB)(J7620) NEB SCH ×6 (03:35→23:16)
[2016-07-11 06:00] VITALS: BP 132/80
[2016-07-11 06:48] LABS: MEAN CORPUSCULAR HEMOGLOBIN 29.5 pg (27.0-33.0); MEAN CORPUSCULAR HGB CONC 30.3 g/dl (32.0-36.5); MEAN CORPUSCULAR VOLUME 97.2 fl (80.0-96.0); RED CELL DISTRIBUTION WIDTH 12.9 % (11.5-14.5); WHITE BLOOD COUNT 11.3 K/mm3 (4.0-10.0)
[2016-07-11 07:13] LABS: ANION GAP 3 MEQ/L (8-16); BLOOD UREA NITROGEN 7 MG/DL (7-18); CARBON DIOXIDE LEVEL 43 MEQ/L (21-32); CHLORIDE LEVEL 91 MEQ/L (98-107); CREATININE FOR GFR 0.48 MG/DL (0.55-1.02); GLOMERULAR FILTRATION RATE > 60.0 (>45); GLUCOSE, FASTING 124 MG/DL (80-110); MAGNESIUM LEVEL 2.1 MG/DL (1.8-2.4); SODIUM LEVEL 137 MEQ/L (136-145)
[2016-07-11] MEDS: NICOTINE 14 MG/24 HR TRANSDERMAL TD SCH (08:35)
[2016-07-11] MEDS: ACETAMINOPHEN TAB 650MG DOSE (2X325MG) PO PRN ×2 (08:35→17:23)
[2016-07-11] MEDS: ENOXAPARIN 40 MG/0.4 ML SYRINGE (J1650) SC SCH (08:36)
[2016-07-11] MEDS: OMEPRAZOLE 20 MG CAP PO SCH ×2 (08:36→20:26)
[2016-07-11] MEDS: hydroCHLOROthiazide 25 MG TAB PO SCH (08:36)
[2016-07-11] MEDS: METHADONE 10 MG TAB (S0109) PO SCH (08:37)
[2016-07-11] MEDS: guaiFENesin ER 600 MG TAB PO SCH ×2 (08:37→20:26)
[2016-07-11] MEDS ORDERED: ASPIRIN 81 MG ENTERIC TAB PO ONE (08:45)
[2016-07-11] MEDS: predniSONE 20 MG TAB PO SCH ×2 (09:41→20:26)
--- NOTE | 2016-07-11 11:48 | IPNPDOC ---
Date Seen The patient was seen on 07/11/16. Progress Note SUBJECTIVE: Ms. Callahan is a 61-year-old female evaluated bedside this morning. She reports that her breathing has improved and that she ambulated yesterday. She reports a headache for which she says aspirin is helpful. She also reports some insomnia, but states she cannot take trazodone or Benadryl secondary to feeling jittery. Patient continues to have mild leukocytosis, likely secondary to steroid. Patient's blood pressure is better controlled. CRP is improving. Blood cultures are negative thus far. OBJECTIVE PHYSICAL EXAMINATION: VITAL SIGNS: Please see below. GENERAL: Petite female resting comfortably in hospital bed upon evaluation, well-nourished, well-developed, no apparent distress, nasal cannula in place HEENT: Atraumatic, normocephalic, PERRL, EOMI, wears spectacles, oral mucosa appears pink and moist, oral candidiasis appears to be improving, nasal septum appears midline, nares patent, nasal cannula in place CARDIOVASCULAR: Regular rate and rhythm, normal S1 and S2, no murmur, rub, click appreciated RESPIRATORY: Rhonchi and wheezes noted in the upper lung lobes bilaterally, breath sounds diminished in the lower lung lobes bilaterally ABDOMINAL: Flat, soft, nontender, nondistended, bowel sounds appreciated EXTREMITIES: Moving all 4 extremities appropriately, upper and lower extremity pulses appreciated bilaterally, equal, symmetrical, +2/4, no edema appreciated NEUROLOGICAL: Cranial nerves II through XII appear grossly intact PSYCHOLOGICAL: Mood and affect appear appropriate LABORATORY DATA: Please see below. MICROBIOLOGY: Please see below. DVT prophylaxis ordered?: Lovenox 40 mg subcutaneous daily. ASSESSMENT AND PLAN: Ms. Callahan is a 61-year-old female who presents with acute on chronic hypoxic and hypercarbic respiratory failure secondary to COPD exacerbation. PROBLEMS: 1. Acute on chronic hypoxic hypercarbic respiratory failure: Likely secondary to COPD exacerbation . Continues to remain afebrile. Adjusted to prednisone 40 mg twice a day. DuoNeb's improved patient's lung examination. Continue with albuterol. CRP continues to improve. 2. Headache: One-time dose of aspirin 81 mg patient says aspirin house headache. We'll continue to monitor. 3. Leukocytosis: Likely secondary to steroid. Remains afebrile. Continue to monitor with daily CBC. 4. Oral candidiasis: Improved. Continue with nystatin swish and swallow. 5. History of opioid abuse: Continue with methadone. 6. Gastric esophageal reflux disease: Continue with omeprazole 40 mg twice a day. 7. Nausea: Zofran. 8. Insomnia: Patient has difficulty sleeping. Reports that trazodone and Benadryl give her the jitters. Has taken melatonin with success, however not on formulary in the hospital. DISPOSITION: Currently admitted to medical surgical unit. Clinical picture continues to improve. Patient has opted out of home services with patient and family services. Adjusted to oral steroid. Possible discharge in the next 24-48 hours. VS, I&O, 24H, Fishbone Vital Signs/I&O Vital Signs Date Time Temp Pulse Resp B/P (MAP) Pulse Ox O2 Delivery O2 Flow Rate FiO2 07/11/16 09:40 Nasal Cannula 2.0 07/11/16 08:37 18 07/11/16 06:00 97.8 98 132/80 (97) 93 07/08/16 06:00 28 I&O- Last 24 Hours up to 6 AM 07/11/16 06:00 Intake Total 1000 ml Output Total 3100 ml Balance -2100 ml Laboratory Data 24H LABS Laboratory Tests 2 07/11/16 06:32: Anion Gap 3L, Glomerular Filtration Rate > 60.0, Blood Urea Nitrogen 7, Creatinine 0.48L, Sodium Level 137, Potassium Level 4.0, Chloride Level 91L, Carbon Dioxide Level 43H, Calcium Level 9.0, Magnesium Level 2.1, C-Reactive Protein, Quantitative 1.44H CBC/BMP Laboratory Tests 07/11/16 06:32 Red Blood Count 4.80, Mean Corpuscular Volume 97.2 H, Mean Corpuscular Hemoglobin 29.5, Mean Corpuscular Hemoglobin Concent 30.3 L, Red Cell Distribution Width 12.9, Calcium Level 9.0 Microbiology Microbiology 07/07/16 Blood Culture - Preliminary, Resulted No Growth after 72 hours. All specime... 07/07/16 Blood Culture - Preliminary, Resulted No Growth after 72 hours. All specime... 07/07/16 Respiratory Virus Panel (PCR) ([facility]) - Final, Complete Human Rhinovirus/Enterovirus ROSENDO MCCALL-Juanpablo July 11, 2016 11:48
[2016-07-11] MEDS: ADVAIR DISKUS 250/50 INH PWD INH SCH ×2 (12:30→20:28)
[2016-07-11 14:00] VITALS: BP 142/86
[2016-07-11 20:45] VITALS: BP 168/90
[2016-07-11] MEDS ORDERED: METOPROLOL TART 25 MG TABLET PO ONE (21:15)
[2016-07-11 22:20] VITALS: BP 146/82
[2016-07-12] MEDS: NYSTATIN 500,000 U/5 ML SUSP UDC SS SCH ×2 (00:08→06:03)
[2016-07-12] MEDS: IPRATROPIUM 0.5MG/ALBUTEROL 2.5MG INH SOL UD 3ML (DUONEB)(J7620) NEB SCH ×2 (03:29→06:18)
[2016-07-12 05:20] VITALS: BP 172/98
[2016-07-12 06:00] VITALS: BP 160/80
[2016-07-12 06:28] LABS: MEAN CORPUSCULAR HEMOGLOBIN 29.8 pg (27.0-33.0); MEAN CORPUSCULAR HGB CONC 31.8 g/dl (32.0-36.5); MEAN CORPUSCULAR VOLUME 93.6 fl (80.0-96.0); RED CELL DISTRIBUTION WIDTH 12.9 % (11.5-14.5); WHITE BLOOD COUNT 10.2 K/mm3 (4.0-10.0)
[2016-07-12 06:48] LABS: ANION GAP 5 MEQ/L (8-16); BLOOD UREA NITROGEN 7 MG/DL (7-18); CALCIUM LEVEL 8.5 MG/DL (8.8-10.2); CARBON DIOXIDE LEVEL 40 MEQ/L (21-32); CHLORIDE LEVEL 91 MEQ/L (98-107); CREATININE FOR GFR 0.43 MG/DL (0.55-1.02); GLOMERULAR FILTRATION RATE > 60.0 (>45); GLUCOSE, FASTING 114 MG/DL (80-110); MAGNESIUM LEVEL 1.9 MG/DL (1.8-2.4); POTASSIUM SERUM 3.8 MEQ/L (3.5-5.1); SODIUM LEVEL 136 MEQ/L (136-145)
[2016-07-12] MEDS ORDERED: MAGNESIUM OXIDE 400 MG TAB (MAG-OX) PO ONE (07:15)
[2016-07-12] MEDS: NICOTINE 14 MG/24 HR TRANSDERMAL TD SCH (08:11)
[2016-07-12] MEDS: predniSONE 20 MG TAB PO SCH (08:11)
[2016-07-12] MEDS: OMEPRAZOLE 20 MG CAP PO SCH (08:11)
[2016-07-12] MEDS: ENOXAPARIN 40 MG/0.4 ML SYRINGE (J1650) SC SCH ×2 (08:11→08:25)
[2016-07-12] MEDS: guaiFENesin ER 600 MG TAB PO SCH (08:13)
[2016-07-12] MEDS: METHADONE 10 MG TAB (S0109) PO SCH (08:13)
[2016-07-12] MEDS ORDERED: hydroCHLOROthiazide 25 MG TAB PO SCH (09:00)
[2016-07-12] MEDS: ADVAIR DISKUS 250/50 INH PWD INH SCH (09:03)
[2016-07-12] MEDS ORDERED: PRED10TA PO (09:12)
[2016-07-12] MEDS ORDERED: GUAI60TA PO (09:12)
[2016-07-12] MEDS ORDERED: HYDR25TAB PO (09:31)
[2016-07-12] MEDS ORDERED: CARV6.25 PO (09:32)
[2016-07-12] MEDS ORDERED: CARVedilol 6.25 MG TAB PO ONE (09:45)
[2016-07-12 10:36] VITALS: BP 140/78
--- NOTE | 2016-07-12 17:26 | DS.PDOC ---
Discharge Summary General Date of Admission July 07, 2016 at 17:22 Date of Discharge 07/12/2016 Primary Care Physician: ROSENDO MCCALL Attending Physician: MAXINE NAVARRO MD Discharge Summary PROCEDURES PERFORMED DURING STAY: [None]. ADMITTING DIAGNOSES: 1. Acute hypercapnic respiratory failure. 2. Hypovolemia. 3. Opiate addiction. 4. Gastroesophageal reflux disease. DISCHARGE DIAGNOSES: 1. COPD exacerbation secondary to rhinovirus/enterovirus. 2. Oral candidiasis. 3. Leukocytosis, reactive. 4. Opiate addiction. 5. Hypertension. 6. Tobacco abuse. 7. Tachycardia. 8. Hypocalcemia. COMPLICATIONS/CHIEF COMPLAINT: Copd W/Acute Exacerbation;Resp Failure Hypercapnia. HISTORY OF PRESENT ILLNESS: Is a 61-year-old female past history of COPD on 2 L home O2, opiate dependence previously on a methadone program, GERD, OA who presents increasing SOB and hypoxia. states patient has been complaining of shortness of breath and generalized malaise over the past week. Patient states over the past few days she's developed thicker mucus as well as increasing shortness of breath. Today, the patient's pulse ox was noted to be 62 on 2 L nasal cannula. Patient denies any fevers however had a fever 100.8 in the ED. Patient was very lethargic in the ED and was placed on BiPAP. ABG with respiratory acidosis. At present patient is alert oriented 3. Was able to give a full history. Patient denies any chest pain/shortness of breath/palpitations. Patient denies nausea/vomiting/abdominal pain. Patient states she's in a methadone program in [place] and closer daily for her methadone. States she takes 80 mg daily. HOSPITAL COURSE: Patient admitted to medical surgical unit. Antibiotics initiated and eventually discontinued secondary to nasopharyngeal swab result. Patient received BiPAP, DuoNeb's, and Solu-Medrol. Intravenous steroid was decreased and eventually adjusted to by mouth. Reflexes leukocytosis noted secondary to steroid use. Did improve during hospitalization. ABG was consistent with acute hypercarbic respiratory failure. Follow-up ABG showed improvement. Initiated intravenous fluid resuscitation. Continued proton pump inhibitor. Patient had been diagnosed with oral candidiasis outpatient. Initiated nystatin swish and swallow as fluconazole patient was on interacts with methadone. Continue patient's Methadose and continued treatment during admission. Electrolyte abnormalities were corrected or supplemented. Nausea controlled with Zofran. Developed intermittent tachycardia, asymptomatic. Continue to monitor without intervention. Developed headache and was treated with aspirin. Developed a hypertensive episode overnight was managed with metoprolol. Patient's hydrochlorothiazide was previously scheduled medication to control patient's blood pressure. Secondary to increase in hydrochlorothiazide, upon discharge patient's hydrochlorothiazide has become scheduled medication and carvedilol has been added as this will control both hypertension and tachycardia. Patient improved throughout hospitalization and was stable at time of discharge. DISCHARGE MEDICATIONS: Please see below. ALLERGIES: Please see below. PHYSICAL EXAMINATION ON DISCHARGE: VITAL SIGNS: Please see below. GENERAL: Petite female sitting comfortably in hospital bed upon evaluation, appears stated age, in no apparent distress HEENT: Atraumatic, normocephalic, PERRL, EOMI, oral mucosa appears pink and moist, nasal septum appears midline, nasal cannula in place, nares are patent, wears spectacles NECK: Bony, soft, supple, trachea midline, no lymphadenopathy appreciated CARDIOVASCULAR EXAMINATION: Regular rate and rhythm, normal S1 and S2, no murmur , rub, click appreciated RESPIRATORY EXAMINATION: Wheezing and rhonchi have vastly improved ABDOMINAL EXAMINATION: Flat, soft, nontender, nondistended, bowel sounds appreciated EXTREMITIES: Moving all 4 extremities appropriately, peripheral pulses appreciated bilaterally in upper and lower extremities, equal, symmetrical, +2/4 , no edema appreciated SKIN: Warm, dry, intact NEUROLOGICAL EXAMINATION: Cranial nerves II through XII appear grossly intact PSYCHIATRIC EXAMINATION: Mood and affect appear appropriate LABORATORY DATA: Please see below. IMAGING: Chest x-ray IMPRESSION: Marked chronic changes with possible basilar pneumonia. Chest x-ray IMPRESSION: Slight increase in streaky bibasilar atelectasis/infiltrate. PROGNOSIS: Stable ACTIVITY: As tolerated. DIET: COPD diet. DISCHARGE PLAN: Follow discharge instructions DISPOSITION: 01 Home, Self-Care. DISCHARGE INSTRUCTIONS: 1. Start taking carvedilol 6.25 mg twice a day. 2. Continue with prednisone taper 30 mg twice a day for 1 day, 20 mg twice a day for 1 day, 10 mg twice a day for 1 day, then 5 mg twice a day for 1 day. 3. Return to the emergency department if shortness of breath worsens or persists. ITEMS TO FOLLOWUP ON ON OUTPATIENT: 1. Dr. Durant on 07/19/2016 at 8 AM. DISCHARGE CONDITION: Stable. TIME SPENT ON DISCHARGE: Greater than 30 minutes. Vital Signs/I&Os Vital Signs Date Time Temp Pulse Resp B/P (MAP) Pulse Ox O2 Delivery O2 Flow Rate FiO2 07/12/16 10:36 88 140/78 07/12/16 08:30 Nasal Cannula 2.0 07/12/16 08:13 18 07/12/16 05:20 99.1 92 07/08/16 06:00 28 I&O- Last 24 Hours up to 6 AM 07/12/16 06:00 Intake Total 1480 ml Output Total 3000 ml Balance -1520 ml Laboratory Data Labs 24H Laboratory Tests 2 07/12/16 05:55: Anion Gap 5L, Glomerular Filtration Rate > 60.0, Blood Urea Nitrogen 7, Creatinine 0.43L, Sodium Level 136, Potassium Level 3.8, Chloride Level 91L, Carbon Dioxide Level 40H, Calcium Level 8.5L, Magnesium Level 1.9, C-Reactive Protein, Quantitative 0.88H CBC/BMP Laboratory Tests 07/12/16 05:55 Red Blood Count 4.66, Mean Corpuscular Volume 93.6, Mean Corpuscular Hemoglobin 29.8, Mean Corpuscular Hemoglobin Concent 31.8 L, Red Cell Distribution Width 12.9, Calcium Level 8.5 L Microbiology Microbiology 07/07/16 Blood Culture - Final, Complete NO GROWTH AFTER 5 DAYS 07/07/16 Blood Culture - Final, Complete NO GROWTH AFTER 5 DAYS 07/07/16 Respiratory Virus Panel (PCR) ([facility]) - Final, Complete Human Rhinovirus/Enterovirus Discharge Medications Scheduled (Incruse Ellipta) 62.5 Mcg/Inh Inh, 1 PUFF INH DAILY, (Reported) Ascorbic Acid (Vitamin C) 500 Mg Tab, 500 MG PO DAILY, (Reported) Carvedilol (Carvedilol) 6.25 Mg Tab, 6.25 MG PO BID Fluticasone/Vilanterol (Breo Ellipta 200-25 Mcg/INH) 1 Inh Inh, 1 INH INH DAILY, (Reported) Guaifenesin (Mucinex) 600 Mg Tab, 600 MG PO BID Hydrochlorothiazide (Hydrochlorothiazide) 25 Mg Tab, 25 MG PO DAILY Methadone HCl (Methadone HCl) 40 Mg Tab, 80 MG PO DAILY, (Reported) VERIFIED WITH METHADONE CLINIC IN [place] Prednisone (Prednisone) 10 Mg Tab, 10 MG PO BID 3 tabs twice daily, 2 tabs twice daily, 1 tab twice daily, 1 tab daily, then discontinue Scheduled PRN Albuterol Sulfate (Ventolin Hfa) 200 Puff/8 Gm Aers, 2 PUFF INH Q4H PRN for SOB/ WHEEZING, (Reported) Albuterol/Ipratropium (Ipratropium [place]/Albut 0.5-2.5 (3) mg/3Ml) 1 Akleigh Kaleigh, 1 [place]IGH INH Q4H PRN for SHORTNESS OF BREATH, (Reported) Allergies Coded Allergies: Penicillins (Verified Allergy, Severe, THROAT CLOSES, 07/07/16) Penicillins Cross Reactors (Verified Allergy, Severe, THROAT CLOSES, ) ROSENDO MCCALL-Juanpablo July 12, 2016 17:26
== END 2016-07-12 11:33 | disposition home or self-care (01) | DRG 140 ==
LOC: M ED 15:55 → M ED INP 17:22 → M ICU 20:30 → M MSPAV 07-08 12:17
PROVIDERS: ADMIT Internal Medicine; ATTEND Internal Medicine
DX: J44.1 Chronic obstructive pulmonary disease with (acute) exacerbation (principal); J96.21 Acute and chronic respiratory failure with hypoxia; B37.0 Candidal stomatitis; Z99.81 Dependence on supplemental oxygen; E83.42 Hypomagnesemia; F11.20 Opioid dependence, uncomplicated; J96.22 Acute and chronic respiratory failure with hypercapnia; E83.52 Hypercalcemia; B97.10 Unspecified enterovirus as the cause of diseases classified elsewhere; R00.0 Tachycardia, unspecified; F17.210 Nicotine dependence, cigarettes, uncomplicated; K21.9 Gastro-esophageal reflux disease without esophagitis; R11.0 Nausea; Z79.899 Other long term (current) drug therapy; Z80.1 Family history of malignant neoplasm of trachea, bronchus and lung; Z88.0 Allergy status to penicillin; Z99.89 Dependence on other enabling machines and devices

== ENCOUNTER → 2016-07-31 | Outpatient (RCR) | payer MEDICAID ==
[~2016-07-31] MED LIST changes: +CARV6.25 PO; +GUAI60TA PO; +IPRASOL4 INH; +METH40TA PO
== END ==
LOC: M OUTALCOH 14:11
PROVIDERS: ATTEND Psychiatry & Neurology Psychiatry
DX: F11.20 Opioid dependence, uncomplicated (principal); F17.200 Nicotine dependence, unspecified, uncomplicated

== ENCOUNTER 2016-08-16 14:11 | Outpatient (RCR) | payer MEDICAID ==
[~2016-08-16 14:11] MED LIST changes: +AZIT-12 PO; -AZIT250T3 PO; -GUAI60TA PO; +LEVA1TAB2 PO; -LEVA500T PO; -LEVA750T PO; +LEVA750T7 PO; +MUCI600T31 PO; -MUCI600T34 PO; +MUCI600T37 PO; +PRED10TA2 PO; -VITA-130 PO; +VITA500T PO
== END 2016-08-30 ==
LOC: M OUTALCOH 14:11
PROVIDERS: ATTEND Psychiatry & Neurology Psychiatry
DX: F11.20 Opioid dependence, uncomplicated (principal); F17.200 Nicotine dependence, unspecified, uncomplicated

== ENCOUNTER 2016-10-04 13:00 | Outpatient (RCR) | payer MEDICAID | END 2016-10-31 | LOC: M OUTALCOH 13:00 | PROVIDERS: ATTEND Psychiatry & Neurology Psychiatry | DX: F11.20 Opioid dependence, uncomplicated (principal); F17.200 Nicotine dependence, unspecified, uncomplicated ==